=== PATIENT | female | born 1990 | race Caucasian/White ===

== ENCOUNTER → 2018-04-14 | Outpatient (CLI) | payer BC | END | disposition home or self-care (01) | LOC: STAR 11:42 | PROVIDERS: ATTEND Otolaryngology | DX: Z02.9 Encounter for administrative examinations, unspecified (principal) ==

== ENCOUNTER 2018-04-18 05:30 | Day surgery (SDC) | payer BC ==
[~2018-04-18] VITALS: Ht 165.1 cm; Wt 109.8 kg
[2018-04-18] MEDS ORDERED: LACTATED RINGERS 1,000 ML IV SCH (06:13)
[2018-04-18 06:19] LABS: HCG UR SG 1.018 (1.003-1.030)
[2018-04-18 06:32] VITALS: BP 117/78
[2018-04-18] MEDS ORDERED: OXYMETAZOLINE NASAL SPRAY 0.05%, 15ML ONE (07:06)
[2018-04-18] MEDS ORDERED: FENTANYL PF 250 MCG/5ML ONE (07:13)
[2018-04-18] MEDS ORDERED: MIDAZOLAM 1 MG/ML, 2ML ONE (07:13)
[2018-04-18] MEDS ORDERED: ACETAMINOPHEN 500 MG TABLET PO ONE (07:30)
[2018-04-18] MEDS ORDERED: SCOPOLAMINE PATCH, 1.5MG PATCH.TD72 TD ONE (07:30)
[2018-04-18] MEDS ORDERED: GABAPENTIN 300 MG CAPSULE PO ONE (07:30)
[2018-04-18] MEDS ORDERED: PROPOFOL 10 MG/ML, 20ML ONE (07:40)
[2018-04-18] MEDS ORDERED: ONDANSETRON 2MG/ML, 2ML ONE ×2 (07:40→09:05)
[2018-04-18] MEDS ORDERED: ROCURONIUM 10 MG/ML,10ML ONE (07:40)
[2018-04-18] MEDS ORDERED: CEFAZOLIN 1,000 MG ONE (07:40)
[2018-04-18] MEDS ORDERED: SUCCINYLCHOLINE 20 MG/ML, 10ML ONE (07:40)
[2018-04-18] MEDS ORDERED: DEXAMETHASONE 4 MG/ML, 1ML ONE (07:40)
[2018-04-18] MEDS ORDERED: LABETALOL 5MG/ML, 20ML IV PRN (08:00)
[2018-04-18] MEDS ORDERED: HYDROmorphone 1 MG/ML, 1ML IV PRN (08:00)
[2018-04-18] MEDS ORDERED: OXYcodone 5 MG/5 ML ORAL.SOL UDC PO PRN (08:00)
[2018-04-18] MEDS ORDERED: ONDANSETRON 2MG/ML, 2ML IVPush PRN (08:00)
[2018-04-18] MEDS ORDERED: PROMETHAZINE 25 MG/ML, 1ML IV PRN (08:00)
[2018-04-18] MEDS ORDERED: METOCLOPRAMIDE 5 MG/ML, 2ML IV PRN (08:00)
[2018-04-18] MEDS ORDERED: KETOROLAC 30 MG/1 ML IV PRN (08:00)
[2018-04-18] MEDS ORDERED: MEPERIDINE/PF 25MG/0.5ML IVPush PRN (08:00)
[2018-04-18] MEDS ORDERED: hydrALAzine 20 MG/ML, 1ML IV PRN (08:00)
[2018-04-18] MEDS ORDERED: ALBUTEROL SULFATE 2.5 MG/3 ML NPPB PRN (08:00)
[2018-04-18] MEDS ORDERED: FENTANYL PF 100 MCG/2ML ONE (08:36)
[2018-04-18] MEDS: FENTANYL PF 100 MCG/2ML IV PRN ×2 (08:38→08:55)
[2018-04-18] MEDS ORDERED: OXYcodone 5 MG/5 ML ORAL.SOL UDC ONE (08:39)
== END 2018-04-18 11:00 | disposition home or self-care (01) ==
LOC: OUT 05:30
PROVIDERS: ATTEND Otolaryngology
DX: J35.2 Hypertrophy of adenoids (principal); J34.3 Hypertrophy of nasal turbinates; R59.1 Generalized enlarged lymph nodes; Z88.0 Allergy status to penicillin; Z87.891 Personal history of nicotine dependence
CPT/HCPCS: 31231; 42831; 81025; 88305; J0330; J0690; J1100; J2250; J2405; J2704; J3010; J7120